=== PATIENT | male | born 1985 | race Caucasian/White ===

== ENCOUNTER → 2024-09-13 | Outpatient (CLI) | payer SELFPAY ==
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
== END | disposition home or self-care (01) ==
PROVIDERS: PCP Student in an Organized Health Care Education/Training Program; Referring Provider Student in an Organized Health Care Education/Training Program; Visit Provider Student in an Organized Health Care Education/Training Program
DX: S39.92XA Unspecified injury of lower back, initial encounter (principal); V89.2XXA Person injured in unspecified motor-vehicle accident, traffic, initial encounter
CPT/HCPCS: 72110

== ENCOUNTER → 2025-08-18 | Outpatient (CLI) | payer OTHER, SELFPAY ==
[2025-08-18 17:25] LABS: % Variance 18 %; % Variance Motility 14 %; Count Side 1 17; Count Side 2 14; Motl CLS 1 70; Motl CLS 2 60; Room Temperature 24 (20-27C (Area)); Sperm Count 15 Million (20-50); Sperm Motility 65 % (>=50)
== END | disposition home or self-care (01) ==
LOC: SLDO 15:54
PROVIDERS: PCP Nurse Practitioner Family; Referring Provider Nurse Practitioner Family; Visit Provider Nurse Practitioner Family
DX: N46.9 Male infertility, unspecified (principal)
CPT/HCPCS: 89310

== ENCOUNTER → 2025-09-13 | Outpatient (CLI) | payer OTHER, SELFPAY ==
[2025-09-13 09:46] LABS: Basophils # (Auto) 0.1 Thou/mm3 (0.0-0.2); Basophils % (Auto) 1 % (0-2.5); Eosinophils # (Auto) 0.2 Thou/mm3 (0.0-0.5); Eosinophils % (Auto) 3 % (0-10); Hematocrit 43.7 % (41.0-53.0); Hemoglobin 15.5 g/dL (13.5-16.0); Immature Granulocytes Auto 0.02 Thou/mm3 (0.00-0.00); Lymphocytes # (Auto) 2.4 Thou/mm3 (1.0-4.8); Lymphocytes % (Auto) 36 % (10-50); Mean Corpuscular HGB Conc 35.5 g/dl (31.0-37.0); Mean Corpuscular Hemoglobin 29.6 pg (25.0-35.0); Mean Corpuscular Volume 83 fL (80-100); Monocytes # (Auto) 0.5 Thou/mm3 (0.0-0.8); Monocytes % (Auto) 8 % (0-12); Neutrophils # (Auto) 3.6 Thou/mm3 (1.8-7.7); Neutrophils % (Auto) 53 % (37-80); Nucleated Red Blood Cell # 0.00 Thou/mm3 (0.00-0.00); Nucleated Red Blood Cell % 0 /100 WBC (0); Platelet Count 264 Thou/mm3 (140-440); RDW Standard Deviation 38.1 fL (35.1-43.9); Red Blood Count 5.24 Miln/mm3 (4.50-5.90); White Blood Count 6.9 Thou/mm3 (3.8-10.6)
[2025-09-13 10:04] LABS: Vitamin D 25 Hydroxy Total 34.0 ng/mL (7.3-40.2)
[2025-09-13 10:06] LABS: Alanine Aminotransferase 29 U/L (10-49); Albumin, Serum 4.6 gm/dL (3.5-5.0); Albumin/Globulin Ratio 1.6 (1.2-2.2); Alkaline Phosphatase 126 U/L (46-116); Anion Gap 10 (7-16); Aspartate Amino Transferase 29 U/L (0-34); BUN/Creatinine Ratio 6 Ratio (12-20); Bilirubin,Total 0.5 mg/dL (0.3-1.2); Blood Urea Nitrogen 7 mg/dL (9-23); Calcium 9.1 mg/dL (8.3-10.6); Calcium (Corrected) 9.1 mg/dL (8.5-10.1); Carbon Dioxide 24.8 mMol/L (20.0-31.0); Cardiac Risk Estimate 3.7 RATIO (4.0-6.7); Chloride 108 mMol/L (98-107); Cholesterol 171 mg/dL (132-200); Creatinine (Component) 1.1 mg/dL (0.6-1.3); Globulin 2.8 gm/dL (2.3-3.5); Glucose 100 mg/dL (74-106); HDL Cholesterol 46 mg/dL (40-60); LDL Cholesterol,Calculated 104 mg/dL (0-130); Osmolality,Calculated 282 (275-295); Potassium 4.1 mMol/L (3.4-5.1); Sodium 143 mMol/L (136-145); Thyroid Stimulating Hormone 2.61 uIU/mL (0.55-4.78); Total Protein 7.4 gm/dL (5.7-8.2); Triglycerides 104 mg/dL (30-150); eGFR > 60 See Note
[2025-09-20 08:45] LABS: Testosterone,Total* 561 ng/dL (250-1100)
== END | disposition home or self-care (01) ==
PROVIDERS: PCP Family Medicine; Referring Provider Nurse Practitioner Family; Visit Provider Nurse Practitioner Family
DX: Z00.00 Encounter for general adult medical examination without abnormal findings (principal)
CPT/HCPCS: 36415; 80053; 80061; 82306; 84403; 84443; 85025